=== PATIENT | female | born 1955 | race Caucasian/White ===

== ENCOUNTER 2022-02-19 13:58 | Outpatient (CLI) | payer MEDICARE, BC, SELFPAY | END 2022-02-19 13:59 | disposition home or self-care (01) | LOC: AMB 02-22 04:41 | PROVIDERS: PCP Family Medicine; Visit Provider Emergency Medicine Emergency Medical Services | DX: S29.9XXA Unspecified injury of thorax, initial encounter (principal); W19.XXXA Unspecified fall, initial encounter; Y92.009 Unspecified place in unspecified non-institutional (private) residence as the place of occurrence of the external cause | CPT/HCPCS: A0425; A0427 ==

== ENCOUNTER 2022-02-19 14:26 | Emergency (ER) | payer MEDICARE, BC, SELFPAY ==
[2022-02-19] VITALS (10 sets, daily range): BP systolic 94–107; BP diastolic 64–65; PULSE 60–70; RESP 22; TEMP 35.9; O2SAT 75–96; BMI 20.4
--- NOTE | 2022-02-19 14:35 | ED.NURSE ---
On pt arrival from EMS, pt O2 at 75% on room air with good wave form. Oxymask applied at 15L O2. O2 satting up to high 90's%. O2 weaned down to 5L on Oxymask.
--- NOTE | 2022-02-19 14:40 | ED.NURSE ---
Pt work of breathing notably increased, jugular venous distention noted, pt report of extreme pain in L chest and L back, pt unable to take a deep breath. Lung sounds diminished on pt L side. MD notified of findings, MD reexamined pt and ordered additional imaging.
--- NOTE | 2022-02-19 14:43 | CRLHL7_ITS ---
For Patients: As a result of the Century Cures Act, medical imaging exams and procedure reports are released immediately into your electronic medical record. You may view this report before your referring provider. If you have questions, please contact your health care provider. INDICATION: Concern for rib fracture. COMPARISON: None. TECHNIQUE: Three views, 3 radiographs of the chest and ribs. Findings: : Cardiomediastinal contours are enlarged. No focal pulmonary opacity. Lucency over the left lateral thorax concerning for a pneumothorax. Numerous displaced rib fractures, involving the approximate 5th, 6th, and 7th posterior lateral ribs. Impression: : Multiple displaced left-sided rib fractures with associated small a moderate left-sided pneumothorax. Discussed with MD Abhishek by MD Bonny at 3:41 PM on 02/19/22. Dictated by Trevon Draper MD @ 02/19/2022 3:42:20 PM (Electronically Signed)
[2022-02-19] MEDS: HYDROmorphone 0.5 mg/0.5 ml inj IVP ×2 (15:02→15:30)
--- NOTE | 2022-02-19 15:03 | ED_ITS ---
HPI - General Adult General Chief complaint: Rib Pain Stated complaint: Fall Time Seen by Provider: 02/19/22 14:31 History of Present Illness HPI narrative: This 66-year-old woman fell at home prior to arrival. She injured her left posterior ribs in comes in in severe pain. She arrives with hypoxia but is not showing any sign of deviated trachea. She was initially on 10 L of oxygen by a non-rebreather mask. This is been reduced to 4 L now and she is showing oximetry at 93%. She did received 2 mg of morphine EN route here by IV. She is complaining of severe pain. She is a smoker. Related Data Home Medications Medication Instructions Recorded Confirmed lisinopril 5 mg tablet 5 mg PO DAILY 02/19/22 02/19/22 pravastatin 40 mg tablet 40 mg PO HS 02/19/22 02/19/22 prednisone 5 mg tablet 2.5 mg PO DAILY 02/19/22 02/19/22 Allergies Allergy/AdvReac Type Severity Reaction Status Date / Time morphine AdvReac Mild Nausea Verified 02/19/22 14:33 Review of Systems Status of ROS: Reports: 10 or more systems reviewed and unremarkable except as noted in History and below Narrative: Constitutional: No fevers, no weight gain or loss. Eyes: No discharge. No vision changes. HENT: No congestion, no sore throat, no ear pain. Cardiovascular: No palpitations. Respiratory: Severe posterior rib pain with shortness of breath. Gastrointestinal: No abdominal pain, no vomiting, no diarrhea. Genitourinary: No dysuria, no hematuria. Musculoskeletal: Normal range of motion. Skin: No rashes, no pruritis. Neurological: No dizziness, weakness, sensory change, speech change. Endo/Heme/Allergies: No bruising or bleeding. No polydipsia. Pysch: no suicidality, no anxiety, no insomnia. All other systems reviewed and are negative. Exam Narrative: Exam Narrative: Constitutional: Well-developed, well-nourished, no acute distress. HEENT: Normocephalic, atraumatic. No tracheal deviation. Neck: Normal range of motion. Nontender. Supple. Heart: Regular. No murmurs. Normal rate. Intact distal pulses. Lungs: Clear to auscultation. Severe left posterior rib pain. Hypoxia. Abdomen: Normal bowel sounds. Nontender. No rebound tenderness. Genitalia: Deferred. Back: No midline tenderness. Normal range of motion. Extremities: Normal range of motion. No injury. Skin: Intact. No rash. Warm. No erythema or pallor. Neurologic: No altered sensation. No weakness. Alert and oriented. Psychiatric: No suicidality. No anxiety or depression. No insomnia. Nursing notes and vitals signs are reviewed. Const: Vital Signs, click to edit/add: Vital Signs - 24 hr 02/19/22 14:34 02/19/22 15:04 02/19/22 15:05 Temperature 96.7 F L Pulse Rate 60 62 Pulse Rate [Pulse Oximeter] 69 Respiratory Rate 22 Blood Pressure 102/64 Blood Pressure [Ri ght Upper Arm] 107/64 Pulse Oximetry 75 L 96 96 Oxygen Delivery Me thod Room Air Course Vital Signs Vital signs: Initial Vital Signs Temperature 96.7 F L 02/19/22 14:34 Temperature Source Temporal Artery Scan 02/19/22 14:34 Pulse Rate 69 02/19/22 14:34 Respiratory Rate 22 02/19/22 14:34 Blood Pressure 107/64 02/19/22 14:34 Blood Pressure Mean 78 02/19/22 14:34 Blood Pressure Position Supine 02/19/22 14:34 Pulse Oximetry 75 L 02/19/22 14:34 Oxygen Delivery Method 02/19/22 14:34 Vital Signs Temperature 96.7 F L 02/19/22 14:34 Pulse Rate 69 02/19/22 14:34 Respiratory Rate 22 02/19/22 14:34 Blood Pressure 107/64 02/19/22 14:34 Pulse Oximetry 75 L 02/19/22 14:34 Oxygen Delivery Method 02/19/22 14:34 Temperature 96.7 F L 02/19/22 14:34 Pulse Rate 62 02/19/22 15:05 Respiratory Rate 22 02/19/22 14:34 Blood Pressure 102/64 02/19/22 15:04 Pulse Oximetry 96 02/19/22 15:05 Oxygen Delivery Method 02/19/22 14:34 Medical Decision Making MDM Narrative Medical decision making narrative: This patient comes in by ambulance in severe pain after a fall with rib injury. She arrives with a need for oxygen by non-rebreather mask at 10 L. she had received 2 mg of morphine EN route here but was in severe pain. Her pressure for systolic value was around 110. She received a half a mg of Dilaudid intravenously which brought some relief. Her oxygen requirement persists but is reduced to 4 L and oximetry at 93%. A portable chest x-ray was done which shows multiple rib fractures and a small pneumothorax. There is no current need for immediate intervention by way of chest tube. Her injury however would be best served by transfer elsewhere. I did contact [facility] and spoke with Dr. Brendon Ho who agrees to his transfer there. Critical Care Time Critical Care Time Critical Care Time: Yes Attestation: The patient required my highest level preparedness to intervene emergently and I personally spent this critical care time directly and personally managing the patient. This critical care time included: Obtaining a history; Examining the patient; Pulse oximetry; Ordering and reviewing of studies; Arranging urgent treatment with development of a management plan; Evaluation of patients response to treatment; Frequent reassessment discussions with other providers. This critical care time was performed to assess and manage the high probability of imminent life-threatening deterioration that could result in multiorgan failure. It was exclusive of separate billable procedures and treating other patients and teaching time. Total Critical Care Time in Minutes: 30 Discharge Plan Discharge Clinical Impression: Pneumothorax, Closed flail chest Patient Disposition: Xfer Other Condition: Unchanged Prescriptions: No Action pravastatin 40 mg tablet 40 mg PO HS Label Comments: TAKE ONE TABLET BY MOUTH ONE TIME DAILY AT BEDTIME prednisone 5 mg tablet 2.5 mg PO DAILY Label Comments: TAKE 1/2 TABLET BY MOUTH ONCE DAILY FOR RA lisinopril 5 mg tablet 5 mg PO DAILY Label Comments: Take 1 Tablet (5 mg) by mouth once daily Follow Up/Referrals: Rahul Wolff MD [Primary Care Provider] - Stand Alone Forms: [facility] Info Instructions Procedures Ultrasound Thoracic exam #1: Anatomical areas examined: left thorax and right thorax Indications: trauma, dyspnea and hypoxia Exam type: limited thoracic ultrasound Findings: left lung (No movement of the pleura between the lungs suggesting pneumothorax.), right lung (Normal exam.) and b-lines (No B lines present on the left upper lung.) Impression: pneumothorax
--- NOTE | 2022-02-19 15:30 | ED.NURSE ---
2x unsuccessful IV access attempted by journalists and other writers. EMS arrived to transfer pt. EMS noted that pt had a lump forming on R side of neck and shoulder. MD notified and examined lump on pt's neck. MD cleared EMS to continue transport.
--- NOTE | 2022-02-19 15:40 | ED.NURSE ---
Pt departs by EMS.
--- NOTE | 2022-02-19 15:57 | ED.NURSE ---
Report called to [facility] ED RN.
== END 2022-02-19 15:40 | disposition other institution (70) ==
PROVIDERS: Emergency Provider Emergency Medicine Emergency Medical Services; PCP Family Medicine
DX: J93.9 Pneumothorax, unspecified (principal); S22.5XXA Flail chest, initial encounter for closed fracture; W19.XXXA Unspecified fall, initial encounter
CPT/HCPCS: 71101; 76604; 99285; 99291; J1170

== ENCOUNTER 2022-02-19 15:29 | Outpatient (CLI) | payer MEDICARE, BC, SELFPAY | END 2022-02-19 15:30 | disposition home or self-care (01) | LOC: AMB 02-22 04:54 | PROVIDERS: PCP Family Medicine; Visit Provider Emergency Medicine Emergency Medical Services | DX: J93.9 Pneumothorax, unspecified (principal) | CPT/HCPCS: A0425; A0427 ==

== ENCOUNTER 2022-05-31 07:30 | Outpatient (RCR) | payer MEDICARE, BC, SELFPAY | END 2022-05-31 09:30 | disposition home or self-care (01) | PROVIDERS: PCP Family Medicine; Visit Provider Orthopaedic Surgery | DX: S42.112D Displaced fracture of body of scapula, left shoulder, subsequent encounter for fracture with routine healing (principal); Z51.89 Encounter for other specified aftercare | CPT/HCPCS: 97110; 97162 ==

== ENCOUNTER 2024-02-11 11:52 | Outpatient (CLI) | payer MEDICARE, BC, SELFPAY | END 2024-02-11 11:53 | disposition home or self-care (01) | LOC: AMB 02-12 05:32 | PROVIDERS: PCP Family Medicine; Visit Provider Emergency Medicine Emergency Medical Services | DX: R55 Syncope and collapse (principal) | CPT/HCPCS: A0425; A0427 ==

== ENCOUNTER 2024-02-11 12:36 | Emergency (ER) | payer MEDICARE, BC, SELFPAY ==
[2024-02-11 12:48] VITALS: BP 116/80; PULSE 94; RESP 16; TEMP 35.9; O2SAT 96; BMI 21.9
[2024-02-11 13:22] VITALS: BP 106/73; BP 112/78; BP 113/66; PULSE 67; PULSE 73; PULSE 78
--- NOTE | 2024-02-11 13:22 | CRLHL7_ITS ---
For Patients: As a result of the Century Cures Act, medical imaging exams and procedure reports are released immediately into your electronic medical record. You may view this report before your referring provider. If you have questions, please contact your health care provider. INDICATION: Syncope TECHNIQUE: Noncontrast axial CT of the head. Coronal and sagittal reformats. Bone and soft tissue algorithms. COMPARISON: None FINDINGS: The calvarium appears grossly intact. No acute intracranial hemorrhage or abnormal extra-axial fluid collection identified. No midline shift, hydrocephalus or herniation. Mild generalized cerebral volume loss. Preserved ospina-white matter differentiation. Confluent hypoattenuation throughout the supratentorial white matter, typical of chronic microangiopathy. Calcific intracranial atherosclerotic plaquing. Clear visualized paranasal sinuses and mastoid air cells. Unremarkable orbits. IMPRESSION: 1. No skull fracture or acute intracranial hemorrhage identified. 2. Mild generalized cerebral volume loss and moderately advanced chronic microangiopathy changes. Please note that all CT scans at this facility use dose modulation, iterative reconstruction, and/or weight-based dosing when appropriate to reduce radiation dose to as low as reasonably achievable. Dictated by Jacki Hearn MD @ 02/11/2024 1:57:02 PM (Electronically Signed)
--- NOTE | 2024-02-11 13:22 | CRLHL7_ITS ---
For Patients: As a result of the Century Cures Act, medical imaging exams and procedure reports are released immediately into your electronic medical record. You may view this report before your referring provider. If you have questions, please contact your health care provider. Indication: Syncope Technique: Noncontrast axial CT of the cervical spine with coronal and sagittal reformats. Comparison: Same-day CT head Findings: Slight reversal of the normal cervical lordosis. No significant spondylolisthesis. Vertebral body heights are maintained. No acute fracture identified. The spinal canal appears grossly patent. Scattered spondylosis, with neural foraminal narrowing greatest on the right at C4-5, bilaterally at C5-6 and C6-7. Multiple hypodense and calcified bilateral thyroid nodules the largest measuring 1.3 cm at the posterior left thyroid lobe. Emphysematous changes and pleural-parenchymal thickening at the included lung apices. Impression: 1. No evidence of acute fracture or traumatic malalignment in the cervical spine. 2. Cervical spondylosis as detailed. 3. Bilateral thyroid nodules measuring up to 1.3 cm. Please note that all CT scans at this facility use dose modulation, iterative reconstruction, and/or weight-based dosing when appropriate to reduce radiation dose to as low as reasonably achievable. Dictated by Jacki Hearn MD @ 02/11/2024 2:00:34 PM (Electronically Signed)
[2024-02-11 14:02] LABS: Basophils Absolute Auto 0.04 K/uL (0.00-0.30); Basophils Percent Auto 0.6 % (0.0-3.0); Eosinophils Absolute Auto 0.01 K/uL (0.00-0.50); Eosinophils Percent Auto 0.2 % (0.0-7.0); Hematocrit 39.2 % (33.0-51.0); Hemoglobin* 12.7 gm/dL (12.0-16.0); Lymphocytes Absolute Auto 1.59 K/uL (0.90-2.90); Lymphocytes Percent Auto 25.5 % (20-44); Mean Corpuscular HGB Conc 32 gm/dL (32-36); Mean Corpuscular Hemoglobin 33 pg (26-34); Mean Corpuscular Volume 102 fL (80-100); Monocytes Percent Auto 7.1 % (0.0-11.0); Neutrophils Absolute Auto 4.16 K/uL (1.7-7.0); Neutrophils Percent Auto 66.6 % (42.0-72.0); Platelet Count* 271 K/uL (140-440); RDW Coefficient of Variation % 11.8 % (11.5-15.5); Red Blood Count 3.85 m/uL (4.00-5.20); White Blood Count* 6.24 K/uL (4.50-11.00)
[2024-02-11 14:05] LABS: Slide Review Reflex No
--- NOTE | 2024-02-11 14:09 | ED.FALL ---
HPI - Fall General Chief Complaint: Fall/Minor Trauma Stated Complaint: Fall Time Seen by Provider: 02/11/24 13:03 History of Present Illness HPI Narrative: Patient is a 68-year-old woman who presents after a syncopal episode at the liquor store. Patient was admitted typical Monday which apparently involves getting up been having some wine and lunch. She was out of wine and went to the liquor store where she unfortunately passed out. She is not certain whether she hit her head. She has no pain. Ambulance squad was called and staff helped her get up. Patient states she feels fine but please for involved and patient's blood alcohol via police breathalyzer is 0.12. Patient has no history of any seizure disorder. She takes medication for hypertension and arthritis as well as hyperlipidemia. Patient admits that she is a somewhat intoxicated at this time. Patient is brought in by EMS for further evaluation. Glascow coma Scale 15 this by mild intoxication. Related Data Home Medications ?Medication ?Instructions ?Recorded ?Confirmed lisinopril 5 mg tablet 5 mg PO DAILY 02/19/22 02/19/22 pravastatin 40 mg tablet 40 mg PO HS 02/19/22 02/19/22 prednisone 5 mg tablet 2.5 mg PO DAILY 02/19/22 02/19/22 Allergies Allergy/AdvReac Type Severity Reaction Status Date / Time morphine AdvReac Mild Nausea Verified 02/19/22 14:33 Review of Systems Status of ROS: Reports: 10 or more systems reviewed and unremarkable except as noted in History and below [facility] Medical History Arthritis ?M19.90 - Unspecified osteoarthritis, unspecified site (ICD-10) Hyperlipidemia ?E78.5 - Hyperlipidemia, unspecified (ICD-10) Hypertension ?I10 - Essential (primary) hypertension (ICD-10) Exam Narrative: Exam Narrative: EXAM GENERAL: Patient appears comfortable and well. EYES: No scleral icterus THYROID: no thyroid nodules or thyromegaly. LYMPH: No supraclavicular or cervical lymphadenopathy. SKIN: Visible skin seen during exam normal or with benign process only. EXT: No dependent lower extremity pedal edema. HEART: Regular rate and rhythm with no murmurs, rubs, or gallops. LUNGS: Clear to auscultation bilaterally with no crackles or wheezes. ABD: Soft, non tender, non distended. PSYCH: Good eye contact, speech is not pressured. Back exam is unremarkable. Neurologic cranial nerves 2-12 grossly intact mild toxication other focal neurologic defects. Const: Vital Signs, click to edit/add: Vital Signs - 24 hr 02/11/24 12:48 02/11/24 13:22 Temperature 96.7 F L Pulse Rate [Pulse Oximeter] 94 Pulse Rate [orthos tatic lying] 67 Pulse Rate [orthos tatic sitting] 78 Pulse Rate [orthos tatic standing] 73 Respiratory Rate 16 Blood Pressure [Ri ght Upper Arm] 116/80 Blood Pressure [or thostatic lying] 113/66 Blood Pressure [or thostatic sitting] 112/78 Blood Pressure [or thostatic standing ] 106/73 Pulse Oximetry 96 Oxygen Delivery Me thod Room Air Course Course ED Course: Patient seen and examined. No findings on exam and reasonable vital signs. CT of the head neck as well as CMP CBC orthostatics urinalysis ETOH drug screen pending. Vital Signs Vital signs: Initial Vital Signs Temperature 96.7 F L 02/11/24 12:48 Temperature Source Temporal Artery Scan 02/11/24 12:48 Pulse Rate 94 02/11/24 12:48 Pulse Rhythm Regular 02/11/24 12:48 Respiratory Rate 16 02/11/24 12:48 Blood Pressure 116/80 02/11/24 12:48 Blood Pressure Mean 92 02/11/24 12:48 Blood Pressure Position Sitting 02/11/24 12:48 Pulse Oximetry 96 02/11/24 12:48 Oxygen Delivery Method Room Air 02/11/24 12:48 Vital Signs Temperature 96.7 F L 02/11/24 12:48 Pulse Rate 94 02/11/24 12:48 Respiratory Rate 16 02/11/24 12:48 Blood Pressure 116/80 02/11/24 12:48 Pulse Oximetry 96 02/11/24 12:48 Oxygen Delivery Method Room Air 02/11/24 12:48 Temperature 96.7 F L 02/11/24 12:48 Pulse Rate 67 02/11/24 13:22 Respiratory Rate 16 02/11/24 12:48 Blood Pressure 113/66 02/11/24 13:22 Pulse Oximetry 96 02/11/24 12:48 Oxygen Delivery Method Room Air 02/11/24 12:48 MDM - Fall MDM Narrative Medical decision making narrative: Patient is a 68-year-old woman who had a syncopal episode at the liquor store. She is brought in by EMS and is currently being cited for a DUI. Her blood alcohol is 0.11 with the remainder of her workup including CT of the head and neck EKG electrolytes are all reassuring. She is not able to provide a urine for S to send for urinalysis or urine toxicology which I do not feel is crucial. This time reassurance is offered. I did recommend hydration rest and fluids. Updating from alcohol. She will be discharged home with a driver license agent and has been cited by the police. Differential diagnosis includes limited to alcohol intoxication a arrhythmia anemia drug overdose infection. Lab Data Labs: Lab Results 02/11/24 02/11/24 Range/Units 13:55 14:35 WBC 6.24 (4.50-11.00) K/uL RBC 3.85 L (4.00-5.20) m/uL Hgb 12.7 (12.0-16.0) gm/dL Hct 39.2 (33.0-51.0) % MCV 102 H (80-100) fL MCH 33 (26-34) pg MCHC 32 (32-36) gm/dL RDW Coeff of Ashwini 11.8 (11.5-15.5) % Plt Count 271 (140-440) K/uL Neut % (Auto) 66.6 (42.0-72.0) % Lymph % (Auto) 25.5 (20-44) % Dewitt % (Auto) 7.1 (0.0-11.0) % Eos % (Auto) 0.2 (0.0-7.0) % Baso % (Auto) 0.6 (0.0-3.0) % Neut # (Auto) 4.16 (1.7-7.0) K/uL Lymph # (Auto) 1.59 (0.90-2.90) K/uL Dewitt # (Auto) 0.40 (0.00-0.90) K/UL Eos # (Auto) 0.01 (0.00-0.50) K/uL Baso # (Auto) 0.04 (0.00-0.30) K/uL Abs Immat Gran (auto) 0.00 (0.00-0.30) K/uL Imm/Tot Granulo (auto) 0.0 % Sodium 138 (135-149) mmol/L Potassium 5.2 H (3.6-5.1) mmol/L Chloride 103 (96-114) mmol/L Carbon Dioxide 22 (20-32) mmol/L Anion Gap 13 (7-15) mEq/L BUN 16 (7-30) mg/dL Creatinine 0.8 (0.5-1.5) mg/dL Estimated Creat Clear 41.99 Estimated GFR 80 ml/min Glucose 105 (60-115) mg/dL Calcium 9.5 (8.4-10.6) mg/dL Total Bilirubin 0.4 (0.1-1.5) mg/dL AST 58 H (12-35) U/L ALT 59 H (4-35) U/L Alkaline Phosphatase 57 (40-150) U/L Total Protein 8.1 (6.0-8.3) g/dL Albumin 5.1 H (3.3-5.0) g/dL Urine Color Yellow (Yellow) Urine Appearance Clear (Clear) Urine pH 5.0 (5.0-8.5) Ur Specific [place] 1.025 (1.000-1.030) Urine Protein Negative (Negative) Urine Glucose (UA) Negative (Negative) Urine Ketones 1+ A (Negative) Urine Blood Trace-intact A (Negative) Urine Nitrite Negative (Negative) Urine Bilirubin Negative (Negative) Urine Urobilinogen 0.2 (0.2-1.0) Ur Leukocyte Esterase Negative (Negative) Urine RBC 2-5 A (0-2) Urine WBC 0-2 (0-5) Ur Squamous Epith Cells Few (None-Few) Urine Bacteria None (None) Coarse Granular Casts Few A (None) Urine Opiates Screen Negative (Negative) Ur Oxycodone Screen Negative (Negative) Urine Methadone Screen Negative (Negative) Ur Barbiturates Screen Negative (Negative) U Tricyclic Antidepress Negative (Negative) Ur Phencyclidine Scrn Negative (Negative) Ur Amphetamines Screen Negative (Negative) U Methamphetamines Scrn Negative (Negative) U Benzodiazepines Scrn Negative (Negative) Urine Cocaine Screen Negative (Negative) U Marijuana (THC) Screen Negative (Negative) Ur Drug Screen Comment See Note Ethyl Alcohol 0.11 H (0.01-0.03) % Discharge Plan Discharge Clinical Impression: Syncope Patient Disposition: Home w/ Parent or Adult Condition: Stable Instructions: Syncope (ED) Additional Instructions: Rest Fluids Follow-up with your doctor as needed. Activity Level: No Restrictions Discharge Diet: Regular Prescriptions: No Action pravastatin 40 mg tablet 40 mg PO HS Patient Comments: TAKE ONE TABLET BY MOUTH ONE TIME DAILY AT BEDTIME prednisone 5 mg tablet 2.5 mg PO DAILY Patient Comments: TAKE 1/2 TABLET BY MOUTH ONCE DAILY FOR RA lisinopril 5 mg tablet 5 mg PO DAILY Patient Comments: Take 1 Tablet (5 mg) by mouth once daily Follow Up/Referrals: Rahul Wolff MD [Primary Care Provider] - Stand Alone Forms: [facility] Info Instructions
[2024-02-11 14:34] LABS: Albumin* 5.1 g/dL (3.3-5.0); Chloride* 103 mmol/L (96-114); Sodium* 138 mmol/L (135-149)
[2024-02-11 14:35] LABS: Potassium* 5.2 mmol/L (3.6-5.1)
[2024-02-11 14:37] LABS: Anion Gap 13 mEq/L (7-15); Aspartate Amino Transferase* 58 U/L (12-35); Bilirubin Total* 0.4 mg/dL (0.1-1.5); Blood Urea Nitrogen* 16 mg/dL (7-30); Carbon Dioxide* 22 mmol/L (20-32); Creatinine* 0.8 mg/dL (0.5-1.5); Est. Creatinine Clearance* 41.99; Estimated Glomerular Filt Rate 80 ml/min; Glucose* 105 mg/dL (60-115); Total Protein* 8.1 g/dL (6.0-8.3)
[2024-02-11 14:38] LABS: Alanine Aminotransferase* 59 U/L (4-35); Alkaline Phosphatase* 57 U/L (40-150); Calcium* 9.5 mg/dL (8.4-10.6); Ethanol* 0.11 % (0.01-0.03)
[2024-02-11 14:42] LABS: Appearance Urine Clear (Clear); Bilirubin Urine Negative (Negative); Blood Urine Trace-intact (Negative); Color Urine Yellow (Yellow); Glucose Urine Negative (Negative); Ketones Urine 1+ (Negative); Leukocyte Esterase Urine Negative (Negative); Nitrite Urine Negative (Negative); Protein Urine Negative (Negative); Specific Gravity Urine 1.025 (1.000-1.030); Urobilinogen Urine 0.2 (0.2-1.0)
[2024-02-11 14:50] LABS: Amphetamine Screen Urine Negative (Negative); Benzodiazepines Screen Urine Negative (Negative); Cannabinoid Screen Urine Negative (Negative); Cocaine Screen Urine Negative (Negative); Methamphetamines Screen Urine Negative (Negative); Opiate Screen Urine Negative (Negative); Phencyclidine Screen Urine Negative (Negative); Tricyclic Antidepressant Urine Negative (Negative)
[2024-02-11 14:51] LABS: Barbiturate Screen Urine Negative (Negative); Methadone Screen Urine Negative (Negative); Oxycodone Screen Urine Negative (Negative)
[2024-02-11 14:56] LABS: Squamous Epithelial Cell Urine Few (None-Few); WBC Urine 0-2 (0-5)
[2024-02-11 14:57] LABS: Coarse Granular Casts Urine Few
== END 2024-02-11 15:41 | disposition home or self-care (01) ==
PROVIDERS: Emergency Provider Internal Medicine; PCP Family Medicine
DX: R55 Syncope and collapse (principal)
CPT/HCPCS: 36415; 70450; 72125; 80053; 80306; 81001; 81003; 82077; 85025; 99283; 99284; 99285

== ENCOUNTER 2024-06-21 08:32 | Outpatient (CLI) | payer MEDICARE, BC, SELFPAY | END 2024-06-21 08:33 | disposition home or self-care (01) | LOC: AMB 06-23 10:44 | PROVIDERS: PCP Family Medicine; Visit Provider Family Medicine | DX: S69.92XA Unspecified injury of left wrist, hand and finger(s), initial encounter (principal); W01.0XXA Fall on same level from slipping, tripping and stumbling without subsequent striking against object, initial encounter; Y93.89 Activity, other specified; Y92.008 Other place in unspecified non-institutional (private) residence as the place of occurrence of the external cause | CPT/HCPCS: A0998 ==